=== PATIENT | female | born 1985 | race Caucasian/White ===

== ENCOUNTER 2019-03-29 10:40 | Emergency (ER) | payer OTHER ==
[~2019-03-29] VITALS: Ht 152.4 cm; Wt 64.4 kg
[~2019-03-29 10:40] MED LIST: ONDANSETRON ODT4 MG SL
--- OUTSIDE RECORDS SUMMARY | 2019-03-29 10:42 | XMS ---
PreManage Notification: MARLENI VU Security Manager Rental Events No recent Security Events currently on file CRITERIA MET - Group Notification - [facility] - Has Care Guidelines - [facility] - 2 Visits in 30 Days CARE PROVIDERS JODY CADENA Family Medicine 02/04/2012-Current PHONE: Unknown SURINDER Maria Primary Care 11/24/2011-Current PHONE: Unknown Ruthie Maria MD Primary Care 11/17/2012-Current PHONE: Unknown CORINNA SHEPPARD Primary Care 03/05/2017-Yaniv PAK PHONE: [phone] SHONDA LUCAS Primary Care Current PHONE: [phone] Shlomo CHANEYP Primary Care 08/07/2016-Current PHONE: [phone] [facility] Primary Care 11/11/2016-[facility] NADIA PHONE: [phone] Corinna Sheppard Primary Care [facility] PHONE: [phone] [facility] Primary Care [facility] PCP PHONE: Unknown SRINIVAS QUINTANA Primary Care Current PHONE: Unknown Kristine has no Care Guidelines for this patient. Care History Medical/Surgical 03/09/2019 [facility] - PATIENT DOES NOT HAVE INSURANCE-ADÁN CONTACTED TO SEE IF CONTACT CAN BE MADE WITH PATIENT TO HELP WITH APPLYING FOR MEDICAL BENEFITS. - PATIENT DOES NOT HAVE A PCP. E.D. VISIT COUNT (12 MO.) [address] TOTAL 5 NOTE: Visits indicate total known visits. ED/UCC VISIT TRACKING (12 MO.) 03/29/2019 10:40 [facility] [place] TYPE: Emergency COMPLAINT: - URINE PROBLEM 03/08/2019 20:28 [facility] [place] TYPE: Emergency COMPLAINT: - BACK PAIN NON INJURY, HEADACHE DIAGNOSES: - Low back pain - Opioid dependence with withdrawal - Nicotine dependence, unspecified, uncomplicated - Allergy status to other drugs, medicaments and biological substances status - Allergy status to analgesic agent status 03/06/2019 20:11 [facility] [place] TYPE: Emergency COMPLAINT: - NAUSEA/VOMITING DIAGNOSES: - Allergy status to analgesic agent status - Opioid dependence with withdrawal - Nicotine dependence, unspecified, uncomplicated 02/17/2019 06:04 [facility] [place] TYPE: Emergency DIAGNOSES: 73964. MEDICAL CONCERNS 77442. Delusional disorders 10/03/2018 06:11 [facility] [place] TYPE: Emergency DIAGNOSES: 52033. abscess on right arm 32914. Other psychoactive substance use, unspecified, uncomplicated 50797. Cutaneous abscess, unspecified INPATIENT VISIT TRACKING (12 MO.) No inpatient visits to display in this time frame [email or web address]
[2019-03-29] MEDS ORDERED: METHADONE HCL40 MG PO (11:12)
== END 2019-03-29 14:45 | disposition home or self-care (01) ==
LOC: ED 10:40
DX: R31.9 Hematuria, unspecified (principal); F17.200 Nicotine dependence, unspecified, uncomplicated; Z88.8 Allergy status to other drugs, medicaments and biological substances; Z88.6 Allergy status to analgesic agent; Z79.899 Other long term (current) drug therapy
CPT/HCPCS: 81001; 99283

== ENCOUNTER 2019-04-13 11:01 | Emergency (ER) | payer OTHER ==
[~2019-04-13] VITALS: Ht 152.4 cm; Wt 64.4 kg
[~2019-04-13 11:01] MED LIST changes: +METHADONE HCL40 MG PO
--- OUTSIDE RECORDS SUMMARY | 2019-04-13 11:04 | XMS ---
PreManage Notification: MARLENI VU Security Weaver Dobby Loom Events No recent Security Events currently on file CRITERIA MET - Group Notification - [facility] - Has Care Guidelines - [facility] - 2 Visits in 30 Days CARE PROVIDERS JODY CADENA Family Medicine 02/04/2012-Current PHONE: Unknown JODY CADENA Primary Care 11/24/2011-Current PHONE: Unknown Ruthie Maria MD Primary Care 11/17/2012-Current PHONE: Unknown SHONDA LUCAS Primary Care Current PHONE: [phone] Shlomo RUIZ Primary Care 08/07/2016-Current PHONE: [phone] [facility] Primary Care 11/11/2016-[facility] MICHELLEIZABEL PHONE: [phone] [facility] Primary Care [facility] PCP PHONE: Unknown SRINIVAS QUINTANA Primary Care Current PHONE: Unknown Kristine has no Care Guidelines for this patient. Care History Medical/Surgical 03/30/2019 [facility] CASE MANAGEMENT REFERRAL MADE- PATIENT HAS E[facility]CCO AND NO PCP. 03/09/2019 [facility] - PATIENT DOES NOT HAVE INSURANCE-ADÁN CONTACTED TO SEE IF CONTACT CAN BE MADE WITH PATIENT TO HELP WITH APPLYING FOR MEDICAL BENEFITS. - PATIENT DOES NOT HAVE A PCP. Nae VISIT COUNT (12 MO.) [address] TOTAL 6 NOTE: Visits indicate total known visits. ED/UCC VISIT TRACKING (12 MO.) [facility] COMPLAINT: - PASSED OUT 03/29/2019 10:40 [facility] [place] TYPE: Emergency COMPLAINT: - URINE PROBLEM DIAGNOSES: - Allergy status to other drugs, medicaments and biological substances status - Hematuria, unspecified - Allergy status to analgesic agent status - Nicotine dependence, unspecified, uncomplicated - Other vocational rehabilitation technician (current) drug therapy 03/08/2019 20:28 [facility] [place] TYPE: Emergency [...] - Nicotine dependence, unspecified, uncomplicated 02/17/2019 06:04 [facility] [place] TYPE: Emergency DIAGNOSES: 29244. MEDICAL CONCERNS 35818. Delusional disorders 10/03/2018 06:11 [facility] [place] TYPE: Emergency DIAGNOSES: 08504. abscess on right arm 26969. Other psychoactive substance use, unspecified, uncomplicated 80101. Cutaneous abscess, unspecified INPATIENT VISIT TRACKING (12 MO.) No inpatient visits to display in this time frame [email or web address]
[2019-04-13] MEDS ORDERED: REGLAN10 MG PO (13:31)
[2019-04-13] MEDS ORDERED: ONDANSETRON ODT8 MG PO (13:31)
== END 2019-04-13 13:53 | disposition home or self-care (01) ==
LOC: ED 11:01
DX: G43.909 Migraine, unspecified, not intractable, without status migrainosus (principal); F17.200 Nicotine dependence, unspecified, uncomplicated; Z88.6 Allergy status to analgesic agent; Z88.8 Allergy status to other drugs, medicaments and biological substances; Z79.899 Other long term (current) drug therapy
CPT/HCPCS: 96361; 96374; 96375; 99283-25; 99406; J1100; J1200; J2405; J2550; J7030

== ENCOUNTER → 2019-05-29 | Emergency (ER) | payer OTHER ==
[~2019-05-29] VITALS: Ht 152.4 cm; Wt 64.4 kg
[~2019-05-29] MED LIST changes: +CLINDAMYCIN HC300 MG PO; +ONDANSETRON ODT8 MG PO; +REGLAN10 MG PO; +SUBOXONE 8 MG-1 EAC1 SL; +WELLBUTRIN SR100 MG
--- OUTSIDE RECORDS SUMMARY | 2019-05-29 19:16 | XMS ---
PreManage Notification: MARLENI VU Security Contact Center Analyst Events No recent Security Events currently on file CRITERIA MET - Group Notification - 6 ED Visits in 6 Months - - [facility] Guidelines - PDMP CARE PROVIDERS JODY CADENA Family Medicine 02/04/2012-Current PHONE: Unknown JODY CADENA Primary Care 11/24/2011-Current PHONE: Unknown Ruthie Maria MD Primary Care 11/17/2012-Current PHONE: Unknown CORINNA SHEPPARD Primary Care 03/05/2017-Current [facility] PHONE: [phone] SHONDA LUCAS Primary Care Current PHONE: [phone] Shlomo CHANEYP Primary Care 08/07/2016-Current PHONE: [phone] [facility] Primary Care 11/11/2016-[facility] NADIA PHONE: [phone] Corinna Sheppard Primary Care [facility] PHONE: [phone] [facility] Primary Care [facility] PCP PHONE: Unknown SRINIVAS QUINTANA Primary Care Current PHONE: Unknown Guidelines Source: Radha \F\ [place] IPA Guidelines Date: 04/13/2019 Care Coordination: Please call [facility] case management Aye Sandoval [facility] assistant case manager\T\nbsp; Or Lynsey Mancia RN [phone] ext [phone] or 207\T\nbsp; Care History Medical/Surgical 03/30/2019 [facility] CASE MANAGEMENT REFERRAL MADE- PATIENT HAS EOCCO AND NO PCP. 03/09/2019 [facility] - PATIENT DOES NOT HAVE INSURANCE-ADÁN CONTACTED TO SEE IF CONTACT CAN BE MADE WITH PATIENT TO HELP WITH APPLYING FOR MEDICAL BENEFITS. - PATIENT DOES NOT HAVE A PCP. E.D. VISIT COUNT (12 MO.) [address] TOTAL 7 NOTE: Visits indicate total known visits. ED/UCC VISIT TRACKING (12 MO.) 05/29/2019 19:14 [facility] [place] TYPE: Emergency COMPLAINT: - DENTAL ISSUE 04/13/2019 11:02 [facility] [place] TYPE: Emergency COMPLAINT: - PASSED OUT DIAGNOSES: - Nicotine dependence, unspecified, uncomplicated - Headache - Allergy status to analgesic agent status - Other bed bug exterminator (current) drug therapy - Migraine, unsp, not intractable, without status migrainosus - Allergy status to oth drug/meds/biol subst status 03/29/2019 10:40 [facility] [place] TYPE: Emergency COMPLAINT: - URINE PROBLEM DIAGNOSES: - Allergy status to oth drug/meds/biol subst status - Hematuria, unspecified - Allergy status to analgesic agent status - Nicotine dependence, unspecified, uncomplicated - Other bed bug exterminator (current) drug therapy 03/08/2019 20:28 [facility] [place] TYPE: Emergency COMPLAINT: - BACK PAIN NON INJURY, HEADACHE DIAGNOSES: - Low back pain - Opioid dependence with withdrawal - Nicotine dependence, unspecified, uncomplicated - Allergy status to oth drug/meds/biol subst status - Allergy status to analgesic agent status 03/06/2019 20:11 [facility] [place] TYPE: Emergency COMPLAINT: - NAUSEA/VOMITING DIAGNOSES: - Allergy status to analgesic agent status - Opioid dependence with withdrawal - Nicotine dependence, unspecified, uncomplicated 02/17/2019 06:04 [facility] [place] TYPE: Emergency DIAGNOSES: 65387. MEDICAL CONCERNS 30971. Delusional disorders 10/03/2018 06:11 [facility] [place] TYPE: Emergency DIAGNOSES: 83287. abscess on right arm 01478. Other psychoactive substance use, unspecified, uncomplicated 18326. Cutaneous abscess, unspecified INPATIENT VISIT TRACKING (12 MO.) No inpatient visits to display in this time frame [email or web address]
== END ==
LOC: ED 19:14
DX: K04.7 Periapical abscess without sinus (principal); K02.9 Dental caries, unspecified; F17.200 Nicotine dependence, unspecified, uncomplicated; Z88.8 Allergy status to other drugs, medicaments and biological substances; Z88.6 Allergy status to analgesic agent; Z79.899 Other long term (current) drug therapy
CPT/HCPCS: 99282

== ENCOUNTER 2020-05-21 17:20 | Emergency (ER) | payer OTHER ==
[~2020-05-21] VITALS: Ht 152.4 cm; Wt 68.0 kg
--- OUTSIDE RECORDS SUMMARY | ~2020-05-21 | XMS | Encounter Summary ---
Demographics + + + | Address | [address] | | | [place] [address] | + + + | Home Phone | | + + + | Preferred Language | Unknown | + + + | Marital Status | Unknown | + + + | Adventism Affiliation | Unknown | + + + | Race | Unknown | + + + | Ethnic Group | Not or | + + + Author + + + | Author | [facility] | | | and [place] | + + + | Organization | [facility] | | | and [place] | + + + | Address | Unknown | + + + | Phone | Unavailable | + + + Support +--------+ +---------+ + | Name | Relationship | Address | Phone | +--------+ +---------+ + | One No | ECON | Unknown | Unavailable | +--------+ +---------+ + Care Team Providers + +------+ + | Care Sign Letterer Name | Role | Phone | + +------+ + PCP | Unavailable | + +------+ + Reason for Visit + +--------+ + | Reason | Onset | Comments | | | Date | | + +--------+ + | Coordination Of Care | 04/12/ | | | | 2020 | | + +--------+ + Encounter Details +--------+ + + + + | Date | Type | Department | Care Team | Description | +--------+ + + + + | 04/12/ | Telephone | [facility] | [facility], | Coordination Of Care | | 2020 | | INFECTIOUS DISEASE | MD [address] | | | | | [address] | [address] | | | | | [place], [place] | [place] [address] | | | | | [address] | [phone] | | | | | [phone] | | | +--------+ + + + + Social History + +-------+ +--------+------+ | Tobacco Use | Types | Packs/Day | Years | Date | | | | | Used | | + +-------+ +--------+------+ | Never Assessed | | | | | + +-------+ +--------+------+ + + + | Sex Assigned at | Date Recorded | | | | + + + | Not on file | | + + + documented as of this encounter Miscellaneous Notes Telephone Encounter - Shellie Bolivar MD - 04/12/2020 3:47 PM PDTOrder has been hand-w consueloten and signed on lab requisition slipElectronically signed by Shellie Bolivar MD at 0 04/12/2020 3:48 PM PDTTelephone Encounter - Marcy Young, Breakfast Supervisor - 04/12/2020 3 :03 PM PDTReceived a call from Abigail Stewart, regarding patients last set up labs needed to clear He p C. [email or web address] Called [facility] and they confirmed that the lab was drawn incorrectly. Called patient and requested she go back to the lab and have the lab completed. She states that they have a difficult time getting her labs draw, and w katharineld like to know if she could get an order for her to have her labs drawn through her feet. Marcy Young. CMA 3:0 7 PM PDTdocumented in this encounter Plan of Treatment Not on filedocumented as of this encounter Visit Diagnoses Not on filedocumented in this encounter"
--- OUTSIDE RECORDS SUMMARY | ~2020-05-21 | XMS | Encounter Summary ---
Demographics + + + | Address | [address] | | | [place] [address] | + + + | Home Phone | | + + + | Preferred Language | Unknown | + + + | Marital Status | Unknown | + + + | Religion Affiliation | Unknown | + + + | Race | Unknown | + + + | Ethnic Group | Not or | + + + Author + + + | Author | [facility] | | | and [place] | + + + | Organization | [facility] | | | and [place] | + + + | Address | Unknown | + + + | Phone | Unavailable | + + + Support +--------+ +---------+ + | Name | Relationship | Address | Phone | +--------+ +---------+ + | One No | ECON | Unknown | Unavailable | +--------+ +---------+ + Care Team Providers + +------+ + | Care Chief Service Dispatcher Name | Role | Phone | + +------+ + PCP | Unavailable | + +------+ + Reason for Visit + +--------+ + | Reason | Onset | Comments | | | Date | | + +--------+ + | Coordination Of Care | 08/24/ | | | | 2020 | | + +--------+ + Encounter Details +--------+ + + + + | Date | Type | Department | Care Team | Description | +--------+ + + + + | 08/24/ | Telephone | [facility] | [facility], | Coordination Of Care | | 2020 | | INFECTIOUS DISEASE | MD [address] | | | | | [address] | [address] | | | | | [place], [place] | [place] [address] | | | | | [address] | [phone] | | | | | [phone] | | | +--------+ + + + [...] this encounter Miscellaneous Notes Telephone Encounter - Marcy Young Medical Assistant - 09/30/2019 10:17 AM PSTCalled and touched base with patient to find out if she received her medication. She stated that she h ad not. Gave her [facility] phone number to call to set up shipment. Marcy Young. BEHAVIORAL SCIENCES INSTRUCTOR elephone Encounter - Marcy Young Audio Visual Production Specialist - 09/20/2019 5:06 PM PSTSent Hep C Enrollment form to [facility], as she is resident of [place]. Marcy Young. CMA elephone Encounter - Miroslava Young Audio Visual Production Specialist - 09/20/2019 2:21 PM PSTCalled Betsy, and let her know that once she received medication to call to set up apt to be seen before starting Hep C medication. She verbalized understanding and will call once medication is received. Marcy Young. CMAElectro nically signed by García Lynn at 09/20/2019 2:[address] Marcy Beltrán Audio Visual Production Specialist - 09/20/2019 10:14 AM PSTPatient calling about next s tep to get started with process of getting medication. I let her know I would speak with Dr Ligia Bolivar and call her back. She verbalized understanding. Marcy Young. CMA elephone Encounter - Marcy Diego Audio Visual Production Specialist - 08/24/2019 4:32 PM PSTCalled and let the patient know that labs have been received and just waiting for next step. Will contact her with more informa tion. Marcy Young .CMA elephone Encounter - Marcy Young, Audio Visual Production Specialist - 08/24/2019 4:32 PM PS T----- Message from Renuka Bird sent at 08/24/2019 2:40 PM PST ----- Regarding: labs Pt called she wanted to check if we had received her lab test results she had done last we ek from [facility] [place] she would like a call back if you did get her labs. Thanks Renuka document ed in this encounter Plan of Treatment Not on filedocumented as of this encounter Visit Diagnoses Not on filedocumented in this encounter"
--- OUTSIDE RECORDS SUMMARY | ~2020-05-21 | XMS | Encounter Summary ---
Demographics + + + | Address | [address] | | | [place] [address] | + + + | Home Phone | | + + + | Preferred Language | Unknown | + + + | Marital Status | Unknown | + + + | Alevism Affiliation | Unknown | + + + | Race | Unknown | + + + | Ethnic Group | Not or | + + + Author + + + | Author | [facility] | | | and [place] | + + + | Organization | [facility] | | | [...] Team Providers + +------+ + | Care Dredge Mate Name | Role | Phone | + +------+ + PCP | Unavailable | + +------+ + Reason for Visit + +--------+ + | Reason | Onset | Comments | | | Date | | + +--------+ + | Coordination Of Care | 04/05/ | Hep C | | | 2020 | | + +--------+ + Encounter Details +--------+ + + + + | Date | Type | Department | Care Team | Description | +--------+ + + + + | 04/05/ | Telephone | [facility] | [facility], | Coordination Of Care | | 2020 | | INFECTIOUS DISEASE | MD [address] | (Hep C) | | | | [address] | [address] | | | | | [place], [place] | [place] [address] | | | | | [address] | [phone] | | | | | [phone] | | | +--------+ + + + [...] encounter Miscellaneous Notes Telephone Encounter - Marcy Young, Animal Care Worker - 04/05/2020 2:29 PM PDTReceived a call from business case analyst for patient viral load for hep c. (end of treatment labs) confirming patient no longer has hep c. She gave fax number where she would like this lab faxed. ([phone]. FAX) Received labs from [facility] for Hep C antibody test. Called lab about lab and let her kno w I was looking for a Hep C viral load and a CMP. urinalysis technician states that it was ordered in [facility] system wrong and they would call the patient and get a redraw for the viral load. Marcy Young. CMA Tdocumented in this encounter Plan of Treatment Not on filedocumented as of this encounter Visit Diagnoses Not on filedocumented in this encounter"
--- OUTSIDE RECORDS SUMMARY | ~2020-05-21 | XMS | Clinical Summary ---
Demographics + + + | Address | [address] | | | [place] [address] | + + + | Home Phone | | + + + | Preferred Language | Unknown | + + + | Marital Status | Unknown | + + + | Yarsani Affiliation | Unknown | + + + | Race | Unknown | + + + | Ethnic Group | Not or | + + + Author + + + | Author | [facility] | | | and [place] | + + + | Organization | [facility] | | | [...] Team Providers + +------+ + | Care Powerhouse Helper Name | Role | Phone | + +------+ + PCP | Unavailable | + +------+ + Allergies Not on File Medications + + + +---------+------+------+-------+ | Medication | Sig | Dispensed | Refills | Star | End | Statu | | | | | | t | Date | s | | | | | | Date | | | + + + +---------+------+------+-------+ | buprenorphine | | | 0 | 01/0 | | Activ | | (SUBUTEX) 8 mg SUBL | | | | 7/20 | | e | | | | | | 20 | | | + + + +---------+------+------+-------+ | lamoTRIgine | take 1 tablet by | | 0 | 10/1 | | Activ | | (LAMICTAL) 100 mg | mouth twice a day | | | 6/20 | | e | | tablet | | | | 19 | | | + + + +---------+------+------+-------+ | buPROPion | take 1 tablet by | | 0 | 01/0 | | Activ | | (WELLBUTRIN XL) 150 | mouth every morning | | | 9/20 | | e | | mg 24 hr tablet | | | | 20 | | | + + + +---------+------+------+-------+ | nicotine | | | 0 | 09/2 | | Activ | | polacrilex (COMMIT) | | | | 7/20 | | e | | 2 MG lozenge | | | | 19 | | | + + + +---------+------+------+-------+ | MAVYRET 100-40 MG | | | 0 | 04/1 | | Activ | | per tablet | | | | 10/14 | | e | | | | | | 20 | | | + + + +---------+------+------+-------+ Active Problems No known active problems Encounters +--------+ + + + + | Date | Type | Specialty | Care Team | Description | +--------+ + + + + | 04/28/ | Documentati | Infectious Diseases | Amanda Young, | Other (LABS FROM | | 2019 | on | | District Sales Manager | [facility] DOS | | | | | | 04/26/2020 (HCV RNA, | | | | | | CMP)) | +--------+ + + + + | 04/12/ | Telephone | Infectious Diseases | Osmel | Coordination Of Care | 2019 | | | MD Shellie | | +--------+ + + + + | 04/05/ | Telephone | Infectious Diseases | [place] | Coordination Of Care | | 2019 | | | MD Shellie | (Hep C) | +--------+ + + + + | 03/07/ | Telephone | Infectious Diseases | Nikia Luis | Care Coordination | | 2019 | | | YOCASTA Bell | ([facility] case | | | | | | senior manager creative services) | +--------+ + + + + from Last 3 Months Social History + +-------+ +--------+------+ | Tobacco [...] on file | | + + + Last Filed Vital Signs + + + + + | Vital Sign | Reading | Time Taken | Comments | + + + + + | Blood Pressure | 105/72 | 12/01/2019 3:13 PM | | | | | PDT | | + + + + + | Pulse | 72 | 12/01/2019 3:13 PM | | | | | PDT | | + + + + + | Temperature | 37.2 C (98.9 F) | 12/01/2019 3:13 PM | | | | | PDT | | + + + + + | Respiratory Rate | 16 | 12/01/2019 3:13 PM | | | | | PDT | | + + + + + | Oxygen Saturation | 99% | 12/01/2019 3:13 PM | | | | | PDT | | + + + + + | Inhaled Oxygen | - | - | | | Concentration | | | | + + + + + | Weight | 68.9 kg (152 lb) | 12/01/2019 3:13 PM | | | | | PDT | | + + + + + | Height | - | - | | + + + + + | Body Mass Index | - | - | | + + + + + Plan of Treatment + + + + + | Health Maintenance | Due Date | Last | Comments | | | | Done | | + + + + + | Cervical Cancer | | | | | Screening (Pap) | 4 | | | + + + + + | Vaccine: Influenza | | 05/25/20 | | | (#1) | 0 | 19, | | | | | 06/14/20 | | | | | 15, | | | | | 03/28/20 | | | | | 11, | | | | | Addition | | | | | al | | | | | history | | | | | exists | | + + + + + | Vaccine: | | 07/27/20 | | | Dtap/Tdap/Td (3 - | 5 | 15, | | | Td) | | 08/10/19 | | | | | 11 | | + + + + + | Hepatitis C | Completed | 04/26/20 | | | Screening | | 20, | | | | | 12/01/19 | | | | | 20, | | | | | 11/18/19 | | | | | 20, | | | | | Addition | | | | | al | | | | | history | | | | | exists | | + + + + + Procedures + +--------+ + + + | Procedure Name | Priori | Date/Time | Associated Diagnosis | Comments | | | ty | | | | + +--------+ + + + | COMPREHENSIVE | Routin | 04/26/2020 | | Results for this | | METABOLIC PANEL | e | 12:00 PM | | procedure are in the | | | | PDT | | results section. | + +--------+ + + + | HEPATITIS C | Routin | 04/26/2020 | | Results for this | | RNA,QUANTITATIVE,PCR | e | 12:00 PM | | procedure are in the | | | | PDT | | results section. | + +--------+ + + + from Last 3 Months Results Hepatitis C RNA, quantitative, PCR (04/26/2020 12:00 PM PDT) + + + + + + | Component | Value | Ref Range | Performed | Pathologist | | | | | At | Signature | + + + + + + | HCV RNA JEFRY | NOT DETECTED | | REFERENCE | | | | | | LAB | | | Qualitative | | | [facility] | | + + + + + + | HCV RNA JEFRY | NOT DETECTED | | REFERENCE | | | | | | LAB | | | Qualitative | | | [facility] | | + + + + + + + + | Specimen | + + | Blood | + + + + + + + | Performing | Address | City/State/ZIP Code | Phone Number | | Organization | | | | + + + + + | REFERENCE LAB | [address] | [place] | [phone] | | [facility] | | [address] | | + + + + + Comprehensive Metabolic Panel (04/26/2020 12:00 PM PDT) + +---------+ + + + | Component | Value | Ref Range | Performed | Pathologist | | | | | At | Signature | + +---------+ + + + | Na | 140 | 132 - 143 | REFERENCE | | | | | mmol/L | LAB | | | | | | [facility] | | + +---------+ + + + | K | 4.3 | 3.6 - 5.1 | REFERENCE | | | | | mmol/L | LAB | | | | | | [facility] | | + +---------+ + + + | Cl | 105 | 95 - 112 mmol/L | REFERENCE | | | | | | LAB | | | | | | [facility] | | + +---------+ + + + | CO2 | 27 | 19 - 31 mmol/L | REFERENCE | | | | | | LAB | | | | | | [facility] | | + +---------+ + + + | Anion Gap | 12 | 7 - 21 mmol/L | REFERENCE | | | | | | LAB | | | | | | [facility] | | + +---------+ + + + | Glucose | 104 (A) | 70 - 100 mg/dL | REFERENCE | | | | | | LAB | | | | | | [facility] | | + +---------+ + + + | BUN | 16 | 6 - 23 mg/dL | REFERENCE | | | | | | LAB | | | | | | [facility] | | + +---------+ + + + | Creatinine | 0.67 | 0.60 - 1.35 | REFERENCE | | | | | | LAB | | | | | | [facility] | | + +---------+ + + + | GFR | 100 | 60 | REFERENCE | | | ESTIMATE | | | LAB | | | (REF) | | | [facility] | | + +---------+ + + + | BUN/Creatin | 23.9 | 6.0 - 28.6 | REFERENCE | | | ine Ratio | | | LAB | | | | | | [facility] | | + +---------+ + + + | Calcium | 9.6 | 8.5 - 10.3 | REFERENCE | | | | | | LAB | | | | | | [facility] | | + +---------+ + + + | AST | 13 | 13 - 39 U/L | REFERENCE | | | | | | LAB | | | | | | [facility] | | + +---------+ + + + | ALT | 7 | 7 - 52 U/L | REFERENCE | | | | | | LAB | | | | | | [facility] | | + +---------+ + + + | Alkaline | 65 | 31 - 130 U/L | REFERENCE | | | Phosphatase | | | LAB | | | | | | [facility] | | + +---------+ + + + | Bilirubin | 0.4 | 0.0 1.2 | REFERENCE | | | Total | | | LAB | | | | | | [facility] | | + +---------+ + + + | Total | 6.8 | 6.0 - 8.3 g/dL | REFERENCE | | | Protein | | | LAB | | | | | | [facility] | | + +---------+ + + + | Albumin | 4.5 | 3.5 - 5.0 g/dL | REFERENCE | | | | | | LAB | | | | | | [facility] | | + +---------+ + + + | Globulin | 2.3 | 1.8 - 3.5 | REFERENCE | | | | | | LAB | | | | | | [facility] | | + +---------+ + + + | A/G Ratio | 2.0 | 1.1 - 2.4 | REFERENCE | | | | | | LAB | | | | | | [facility] | | + +---------+ + + + + + | Specimen | + + | Blood | + + + + + + + | Performing | Address | City/State/ZIP Code | Phone Number | | Organization | | | | + + + + + | REFERENCE LAB | [address] | [place] | [phone] | | [facility] | | [address] | | + + + + + from Last 3 Months Insurance + +--------+ +--------+ +---------+--------+ | Payer | Benefi | Subscriber | Effect | Phone | Address | Type | | | t Plan | ID | hali | | | | | | / | | Dates | | | | | | Group | | | | | | + +--------+ +--------+ +---------+--------+ | [employer] | [employer] | [id number] | | [phone] | | Medica | | MEDICAID HMO | HEALTH | | [id number]-Pr | 1 | | id | | | MDCD | | esent | | | | | | HMO [place] | | | | | | + +--------+ +--------+ +---------+--------+ + +--------+ +--------+ + + | Guarantor Name | Accoun | Relation to | Date | Phone | Billing Address | | | t Type | Patient | of | | | | | | | | | | + +--------+ +--------+ + + | Betsy Hammond | Person | Self [birth year] | [address] | | | al/Fam | | 1985 | [phone] | [address] [place] | | | [place] | | | 1 (Home) | [address] | + +--------+ +--------+ + + Advance Directives + + + + + | Type | Date Recorded | Patient | Explanation | | | | Road Driver | | + + + + + | Power of | | | | | Emt B | | | | + + + + + | Advance | | | | | Directive | | | | + + + + +"
--- OUTSIDE RECORDS SUMMARY | ~2020-05-21 | XMS | Encounter Summary ---
Demographics + + + | Address | [address] | | | [place] [address] | + + + | Home Phone | | + + + | Preferred Language | Unknown | + + + | Marital Status | Unknown | + + + | Episcopalian Affiliation | Unknown | + + + | Race | Unknown | + + + | Ethnic Group | Not or | + + + Author + + + | Author | [facility] | | | and [place] | + + + | Organization | [facility] | | | [...] Team Providers + +------+ + | Care Brazing Machine Tender Name | Role | Phone | + +------+ + PCP | Unavailable | + +------+ + Encounter Details +--------+ + + + + | Date | Type | Department | Care Team | Description | +--------+ + + + + | 09/20/ | Orders Only | [facility] | [place], | | | 2020 | | INFECTIOUS DISEASE | MD [address]ie [address] | | | | | [address] | [address] | | | | | [place], [place] | [place] [address] | | | | | [address] | [phone] | | | | | [phone] | | | +--------+ + + + [...] + + documented as of this encounter Plan of Treatment Not on filedocumented as of this encounter Visit Diagnoses Not on filedocumented in this encounter"
--- OUTSIDE RECORDS SUMMARY | ~2020-05-21 | XMS | Encounter Summary ---
Demographics + + + | Address | [address] | | | [place] [address] | + + + | Home Phone | | + + + | Preferred Language | Unknown | + + + | Marital Status | Unknown | + + + | Sabianist Affiliation | Unknown | + + + | Race | Unknown | + + + | Ethnic Group | Not or | + + + Author + + + | Author | [facility] | | | and [place] | + + + | Organization | [facility] | | | [...] Team Providers + +------+ + | Care Delivery Rn Name | Role | Phone | + +------+ + PCP | Unavailable | + +------+ + Reason for Visit + +--------+ + | Reason | Onset | Comments | | | Date | | + +--------+ + | Coordination Of Care | 10/05/ | | | | 2020 | | + +--------+ + Encounter Details +--------+ + + + + | Date | Type | Department | Care Team | Description | +--------+ + + + + | 10/05/ | Telephone | [facility] | [facility], | Coordination Of Care | | 2020 | | INFECTIOUS DISEASE | MD [address] | | | | | [address] | [address] | | | | | [place], [place] | [place] [address] | | | | | [address] | [phone] | | | | | [phone] | | | +--------+ + + + [...] documented as of this encounter Miscellaneous Notes Addendum Note - Shellie Bolivar MD - 10/25/2019 4:56 PM PDT Addended by: JOSE BOLIVAR on: 10/25/2019 04:56 PM Modules accepted: Orders ddendum Note - Marcy Weldon Tail End Rider - 10/25/2019 4:40 PM PDT Addended by: MARCY WELDON on: 04:40 PM Modules accepted: Orders eleph one Encounter - Marcy Weldon Tail End Rider - 10/19/2019 11:51 AM PDTCalled and spoke w ith patient regarding her Hep C medication. She states she will be receiving her meds today . Asked the patient if she had any questions regarding the medication, and she stated the p harmacy went over medication and side effect with her earlier. Requested patient call back once she received the medication to set her up for labs and follow up at 4 weeks. She verba lized understanding and will call once she receives the medication. Marcy Weldon. CMaElectron ically signed by Marcy Weldon Tail End Rider at 10/19/2019 11:52 AM PDTTelephone Encount er - Marcy Weldon Tail End Rider - 10/15/2019 10:53 AM PDTCalled in RX to [facility] under Dr. Lilibeth TRINIDAD, per [place] per Dr. Mcelroy. Marcy Weldon. CMA elephone Encounter - Marcy Weldon M edical Uptwister Tender - 10/08/2019 2:18 PM PDTElla TAX COLLECTION COORDINATOR called [facility], and confirmed that all doct ors in [place] are Registered with them except Dr. Bolivar. Her registration has . Need s renewal. The renewal of registration can take up to 30 days. Marcy Weldon. CMAElectronical ly signed by García Lynn at 10/08/2019 2:20 PM PDTTelephone Encounter - Augusto Ross MD - 10/08/2019 11:19 AM PDTEla said she had a similar issues but DMAP but she called and had it resolved. I am sure it's the same thing. elephone Encounter - Marcy Weldon Medical Assistant - 10/07/2019 4:57 PM PDTI think the other docs at [facility] can write the script. Marcy Michaudectronically signed by García Lynn at 10/07/2019 4:58 PM PDTTelephone Encounter - Lennie Weldon sa, Medical Assistant - 10/07/2019 8:49 AM PDTSpoke with [facility], and the pharmacy s tates that in the meantime, while the issue is being worked out, another provider in clinic can write the prescription for the Hep C medication, so the patient can get started. They w ill accept a RX from another provider. Marcy Weldon. CMA elephone Encounter - Marcy Weldon Medical A ssistant - 10/06/2019 5:02 PM PDTReceived a call from [facility] regarding medications. Pharmacy states she can not except RX due to Dr. Bolivar not being enrolled in DMAP. Which is through [facility] medicaid/medicare. Marcy Weldon. CMA documented in this encounter Plan of Treatment + +------+--------+ + + | Name | Type | Priori | Associated Diagnoses | Order Schedule | | | | ty | | | + +------+--------+ + + | Hepatitis C RNA, | Lab | Routin | Chronic hepatitis | 1 Occurrences | | Quant, NAAT | | e | C without hepatic | starting 10/25/2019 | | | | | coma (HCC) | until 10/24/2020 | + +------+--------+ + + | Comprehensive | Lab | Routin | Chronic hepatitis | 1 Occurrences | | Metabolic Panel | | e | C without hepatic | starting 10/25/2019 | | | | | coma (HCC) | until 10/24/2020 | + +------+--------+ + + documented as of this encounter Visit Diagnoses + + | Diagnosis | + + | Chronic hepatitis C without hepatic coma (HCC) - Primary | + + documented in this encounter"
--- OUTSIDE RECORDS SUMMARY | ~2020-05-21 | XMS | Encounter Summary ---
Demographics + + + | Address | [address] | | | [place] [address] | + + + | Home Phone | | + + + | Preferred Language | Unknown | + + + | Marital Status | Unknown | + + + | Restoration Affiliation | Unknown | + + + | Race | Unknown | + + + | Ethnic Group | Not or | + + + Author + + + | Author | [facility] | | | and [place] | + + + | Organization | [facility] | | | [...] Team Providers + +------+ + | Care Boilermaker Welder Name | Role | Phone | + +------+ + PCP | Unavailable | + +------+ + Encounter Details +--------+ + + + + | Date | Type | Department | Care Team | Description | +--------+ + + + + | 08/16/ | Documentati | [facility] | [place], | | | 2020 | on | INFECTIOUS DISEASE | MD [address]ie [address] | | | | | [address] | [address] | | | | | [place], [place] | [place] [address] | | | | | [address] | [phone] | | | | | [phone] | | | +--------+ + + + [...] Not on filedocumented as of this encounter Procedures + +--------+ + + + | Procedure Name | Priori | Date/Time | Associated Diagnosis | Comments | | | ty | | | | + +--------+ + + + | HEPATITIS B SURFACE | Routin | 08/13/2019 | | Results for this | | AB, QUANT | e | 3:17 PM | | procedure are in the | | | | PST | | results section. | + +--------+ + + + | HEPATITS A AB, TOTAL | Routin | 08/13/2019 | | Results for this | | | e | 3:17 PM | | procedure are in the | | | | PST | | results section. | + +--------+ + + + | HEPATITIS B CORE AB, | Routin | 08/13/2019 | | Results for this | | TOTAL | e | 3:17 PM | | procedure are in the | | | | PST | | results section. | + +--------+ + + + | HIV 1 AND 2 AB, | Routin | 08/13/2019 | | Results for this | | REFLEX | e | 3:17 PM | | procedure are in the | | | | PST | | results section. | + +--------+ + + + | HEPATITIS B SURFACE | Routin | 08/13/2019 | | Results for this | | AG | e | 3:17 PM | | procedure are in the | | | | PST | | results section. | + +--------+ + + + documented in this encounter Results Hepatitis B Core Ab, Total (08/13/2019 3:17 PM PST) + + + + + + | Component | Value | Ref Range | Performed | Pathologist | | | | | At | Signature | + + + + + + | Hepatitis B | Negative | negative | REFERENCE | | | Core Ab, | | | LAB | | | Total | | | [facility] | | | | | | [facility] | | + + + + + + + + | Specimen | + + | Blood | + + + + + | Narrative | Performed At | + + + | Anti-Hbc interpretive notes: This test alone cannot differentiate | REFERENCE LAB | | between past or current hepatitis B virus infection. Chronic | [facility] - | | infection or immune status. | [facility] | + + + + + + + + | Performing | Address | City/State/ZIP Code | Phone Number | | Organization | | | | + + + + + | REFERENCE LAB | [address] | [place] | [phone] | | [facility] | | [address] | | + + + + + Hepatitis B Surface Ag (08/13/2019 3:17 PM PST) + + + + + + | Component | Value | Ref Range | Performed | Pathologist | | | | | At | Signature | + + + + + + | Hepatitis B | Negative | negative | REFERENCE | | | Surface Ag | | | LAB | | | | | | [facility] - | | | Neutralizat | | | [facility] | | | ion | | | | | + + + + + + + + | Specimen | + + | Blood | + + + + + | Narrative | Performed At | + + + | HBsAg Interpretive Notes: Negative: No evidence of Active | REFERENCE LAB | | (Acute or Chronic Hepatitis B Virus infection Positive: Consistent | [facility] - | | with active (acute or Chronic) Hepatitis B virus infection. Patient | [facility] | | is infective for hepatitis B. | | + + + + + + + + | Performing | Address | City/State/ZIP Code | Phone Number | | Organization | | | | + + + + + | REFERENCE LAB | [address] | [place] | [phone] | | [facility] | | [address] | | + + + + + Hepatitis B Surface Ab, Quant (08/13/2019 3:17 PM PST) + + + + + + | Component | Value | Ref Range | Performed | Pathologist | | | | | At | Signature | + + + + + + | Hepatitis B | positive | | REFERENCE | | | Surface | | | LAB | | | Ab, Quant | | | [facility] - | | | | | | [facility] | | + + + + + + + + | Specimen | + + | Blood | + + + + + | Narrative | Performed At | + + + | Anti-Hbs interpretive notes: Negative for ANTI-HBs May indicate lack | REFERENCE LAB | | of immunity to future hepatitis B virus infections. However. This | [facility] - | | test alone cannot rule out early active infection. Order hepatitis | [facility] | | B Panel | | + + + + + + + + | Performing | Address | City/State/ZIP Code | Phone Number | | Organization | | | | + + + + + | REFERENCE LAB | [address] [facility] | [place] | [phone] | | [facility] | | [address] | | + + + + + Hepatitis A AB, Total (08/13/2019 3:17 PM PST) + + + + + + | Component | Value | Ref Range | Performed | Pathologist | | | | | At | Signature | + + + + + + | HEP A TOTAL | Positive | | REFERENCE | | | AB | | | LAB | | | | | | [facility] | | | | | | [facility] | | + + + + + + + + | Specimen | + + | Blood | + + + + + + + | Performing | Address | City/State/ZIP Code | Phone Number | | Organization | | | | + + + + + | REFERENCE LAB | [address] [facility] | [place] | [phone] | | [facility] | | [address] | | + + + + + HIV 1 and 2 Ab, Reflex (08/13/2019 3:17 PM PST) + + + + + + | Component | Value | Ref Range | Performed | Pathologist | | | | | At | Signature | + + + + + + | HIV 1/2 | Non-Reactive | Non-Reactive | REFERENCE | | | Ag/Ab | | | LAB | | | | | | [facility] | | | | | | [facility] | | + + + + + + + + | Specimen | + + | Blood | + + + + + + + | Performing | Address | City/State/ZIP Code | Phone Number | | Organization | | | | + + + + + | REFERENCE LAB | [address] | [place] | [phone] | | [facility] | | [address] | | + + + + + documented in this encounter Visit Diagnoses Not on filedocumented in this encounter"
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
--- OUTSIDE RECORDS SUMMARY | ~2020-05-21 | XMS | Encounter Summary ---
Demographics + + + | Address | [address] | | | [place] [address] | + + + | Home Phone | | + + + | Preferred Language | Unknown | + + + | Marital Status | Unknown | + + + | Shinto Affiliation | Unknown | + + + | Race | Unknown | + + + | Ethnic Group | Not or | + + + Author + + + | Author | [facility] | | | and [place] | + + + | Organization | [facility] | | | and [...] Team Providers + +------+ + | Care Organ Tuner Name | Role | Phone | + +------+ + PCP | Unavailable | + +------+ + Reason for Visit + +--------+ + | Reason | Onset | Comments | | | Date | | + +--------+ + | Coordination Of Care | 08/17/ | | | | 2020 | | + +--------+ + Encounter Details +--------+ + + + + | Date | Type | Department | Care Team | Description | +--------+ + + + + | 08/17/ | Telephone | [facility] | [facility], | Coordination Of Care | | 2020 | | INFECTIOUS DISEASE | MD Shellie [address] | | | | | [address] | [address] | | | | | [place], [place] | [place] [address] | | | | | [address] | [phone] | | | | | [phone] | | | +--------+ + + + [...] Miscellaneous Notes Telephone Encounter - Marcy Young Frame Stylist - 08/17/2019 1:54 PM PSTThe Hep A i s a total, not IGM. Entered incorrectly. I did change it. Fibrosure is being processed. She did not have that one done on 08/13. She went in today to have the lab done. Marcy Young . CMA ele phone Encounter - Marcy Young Medical Assistant - 08/17/2019 1:54 PM PST----- Message fr om Shellie Bolivar MD sent at 08/17/2019 1:13 PM PST ----- Is the Fibrosure in process? Please clarify that the hep A antibody positive is total, not an IgM. Thanks,KP ----- Message ----- From: García Lynn Sent: 08/16/2019 2:33 PM PST To: Shellie Bloivar MD document ed in this encounter Plan of Treatment Not on filedocumented as of this encounter Visit Diagnoses Not on filedocumented in this encounter"
--- OUTSIDE RECORDS SUMMARY | ~2020-05-21 | XMS | Encounter Summary ---
Demographics + + + | Address | [address] | | | [place] [address] | + + + | Home Phone | | + + + | Preferred Language | Unknown | + + + | Marital Status | Unknown | + + + | Yarsanism Affiliation | Unknown | + + + | Race | Unknown | + + + | Ethnic Group | Not or | + + + Author + + + | Author | [facility] | | | and [place] | + + + | Organization | [facility] | | | and [...] Team Providers + +------+ + | Care Senior Compliance Officer Name | Role | Phone | + +------+ + PCP | Unavailable | + +------+ + Reason for Visit +---------+ + | Reason | Comments | +---------+ + | Results | Alpha Fetoprotein total | +---------+ + Encounter Details +--------+ + + + + | Date | Type | Department | Care Team | Description | +--------+ + + + + | 08/17/ | Documentati | [facility] | [place], | Results (Alpha | | 2020 | on | INFECTIOUS DISEASE | MD Shellie [address] | Fetoprotein total) | | | | [address] | [address] | | | | | [place], [place] | [place] [address] | | | | | [address] | [phone] | | | | | [phone] | | | +--------+ + + + [...] + + documented as of this encounter Marcy Bailey, Core Maker Helper - 08/17/2019 8:59 AM PSTAlpha Fetoprotein Total Received and abstracted into Epic and sent to scan. Marcy Young. CMA documented in this encounter Plan of Treatment Not on filedocumented as of this encounter Procedures + +--------+ + + + | Procedure Name | Priori | Date/Time | Associated Diagnosis | Comments | | | ty | | | | + +--------+ + + + | ALPHA FETOPROTEIN, | Routin | 08/13/2019 | | Results for this | | L3 PERCENT | e | 11:20 AM | | procedure are in the | | | | PST | | results section. | + +--------+ + + + documented in this encounter Results Alpha fetoprotein, L3 percent (08/13/2019 11:20 AM PST) + + + + + + | Component | Value | Ref Range | Performed | Pathologist | | | | | At | Signature | + + + + + + | Alpha | 1Comment: l | 0 - 15 ng/m | EXTERNAL | | | Fetoprotein | | | LAB | | | , Total | | | | | + + + + + + | Alpha | <0.5 | 0.0 - 9.9 % | EXTERNAL | | | Fetoprotein | | | LAB | | | , L3 | | | | | | Percent | | | | | + + + + + + + + | Specimen | + + | Blood | + + + + + | Narrative | Performed At | + + + | The Phyllis method is used. Results obtained with different assay | EXTERNAL LAB | | methods or kits cannot be used interchangeably. The AFP-L3 | | | percent assay is intended as a risk assessment for the development of | | | hepatocellular carcinoma in patients with chronic liver diseases. | | | Patients with elevated serum AFP-L3 percent should be more intensely | | | evaluated for evidence of hepatocellular carcinoma since elevated | | | values have been shown to be associated with a seven-fold increase in | | | the risk for developing hepatocellular carcinoma within 231 months. | | + + + + +---------+ + + | Performing | Address | City/State/ZIP Code | Phone Number | | Organization | | | | + +---------+ + + | EXTERNAL LAB | | | | + +---------+ + + documented in this encounter Visit Diagnoses Not on filedocumented in this encounter"
--- OUTSIDE RECORDS SUMMARY | ~2020-05-21 | XMS | Encounter Summary ---
Demographics + + + | Address | [address] | | | [place] [address] | + + + | Home Phone | | + + + | Preferred Language | Unknown | + + + | Marital Status | Unknown | + + + | Yazdanism Affiliation | Unknown | + + + | Race | Unknown | + + + | Ethnic Group | Not or | + + + Author + + + | Author | [facility] | | | and [place] | + + + | Organization | [facility] | | | [...] Team Providers + +------+ + | Care Farm Machinery Mechanic Name | Role | Phone | + +------+ + PCP | Unavailable | + +------+ + Reason for Visit +--------+ + | Reason | Comments | +--------+ + | Other | LABS FROM [facility] 04/26/2020 (HCV RNA, CMP) | +--------+ + Encounter Details +--------+ + + + + | Date | Type | Department | Care Team | Description | +--------+ + + + + | 04/28/ | Documentati | [facility] | Amanda Young, | Other (LABS FROM | | 2019 | on | INFECTIOUS DISEASE | It Infrastructure Manager | [facility] | | | | [address] | | 04/26/2020 (HCV RNA, | | | | [place] | | CMP)) | | | | [address] | | | | | | [phone] | | | +--------+ + + + [...] + + documented as of this encounter Progress Amanda Cabrales, It Infrastructure Manager - 04/28/2020 4:36 PM PDTLab Type: CMP, HCV RNA Lab Collection date: 04/26/2020 Received from:[facility] Abstracted into Zeta Interactive:YES Sent to scan:YES Author: JES REDDYElectrondoug signed by Amanda Young, It Infrastructure Manager at 04/28/2020 4 :41 PM PDTdocumented in this encounter Plan of [...] + + documented in this encounter Results Comprehensive Metabolic Panel (04/26/2020 12:00 PM PDT) [...] [facility] | [place] | [phone] | | [facility] | | [address] | | + + + + + Hepatitis C RNA, quantitative, PCR (04/26/2020 12:00 [...] + | REFERENCE LAB | [address] | [place] | [phone] | | [facility] | | [address] | | + + + + + documented in this encounter Visit Diagnoses Not on filedocumented in this encounter"
--- OUTSIDE RECORDS SUMMARY | ~2020-05-21 | XMS | Encounter Summary ---
Demographics + + + | Address | [address] | | | [place] [address] | + + + | Home Phone | | + + + | Preferred Language | Unknown | + + + | Marital Status | Unknown | + + + | Congregation Affiliation | Unknown | + + + | Race | Unknown | + + + | Ethnic Group | Not or | + + + Author + + + | Author | [facility] | | | and [place] | + + + | Organization | [facility] | | | [...] Team Providers + +------+ + | Care Medical Observer Name | Role | Phone | + +------+ + PCP | Unavailable | + +------+ + Reason for Visit +---------+ + | Reason | Comments | +---------+ + | Results | CMP, HCV RNA | +---------+ + Encounter Details +--------+ + + + + | Date | Type | Department | Care Team | Description | +--------+ + + + + | 11/18/ | Documentati | [facility] | Osmel, | Results (CMP, HCV | | 2020 | on | INFECTIOUS DISEASE | MD Shellie [address] | RNA) | | | | [address] | [address] | | | | | [place], [place] | [place] [address] | | | | | [address] | [phone] | | | | | [phone] | | | +--------+ + + + [...] + documented as of this encounter Progress Notes Antonia Negrete, Assistant Manager Bilingual - 11/19/2019 3:06 PM PDTLab Type: CMP, HCV RNA Lab Collection date: 11/18/2019 Received from:[facility] Abstracted into Epic:YES Sent to scan:YES Author:ANTONIA PERERA CMA P DTdocumented in this encounter Plan of Treatment Not on filedocumented as of this encounter Procedures + +--------+ + + + | Procedure Name | Priori | Date/Time | Associated Diagnosis | Comments | | | ty | | | | + +--------+ + + + | HEPATITIS C RNA, | Routin | 11/18/2019 | | Results for this | | QUANT, NAAT | e | | | procedure are in the | | | | | | results section. | + +--------+ + + + | COMPREHENSIVE | Routin | 11/18/2019 | | Results for this | | METABOLIC PANEL | e | | | procedure are in the | | | | | | results section. | + +--------+ + + + documented in this encounter Results Hepatitis C RNA, Quant, NAAT (11/18/2019) + + + + + + | Component | Value | Ref Range | Performed | Pathologist | | | | | At | Signature | + + + + + + | HCV Viral | NOT QUANTIFIED | NOT DETECTED | EXTERNAL | | | Load | | | LAB | | + + + + + + | HCV-LOG 10 | NOT QUANTIFIED | NOT DETECTED | EXTERNAL | | | | | | LAB | | + + + + + + + + | Specimen | + + | Blood | + + + + + | Narrative | Performed At | + + + | NOT QUANTIFIED--The assay detected the presence of the virus but was | EXTERNAL LAB | | unable to accurately quantify the number of copies. This would | | | indicate a result less than 1.0 log IU/mL (10 IU/mL). | | + + + + +---------+ + + | Performing | Address | City/State/ZIP Code | Phone Number | | Organization | | | | + +---------+ + + | EXTERNAL LAB | | | | + +---------+ + + Comprehensive Metabolic Panel (11/18/2019) + +---------+ + + + | Component | Value | Ref Range | Performed | Pathologist | | | | | At | Signature | + +---------+ + + + | Na | 137 | 132 - 143 | EXTERNAL | | | | | mmol/L | LAB | | + +---------+ + + + | K | 4.5 | 3.6 - 5.1 | EXTERNAL | | | | | mmol/L | LAB | | + +---------+ + + + | Cl | 104 | 95 - 112 mmol/L | EXTERNAL | | | | | | LAB | | + +---------+ + + + | Carbon | 23 | 19 - 31 mmol/L | EXTERNAL | | | dioxide | | | LAB | | + +---------+ + + + | Anion Gap | 15 | 7 - 21 mmol/L | EXTERNAL | | | | | | LAB | | + +---------+ + + + | Glucose | 105 (A) | 70 - 100 mg/dL | EXTERNAL | | | | | | LAB | | + +---------+ + + + | BUN | 13 | 6 - 23 mg/dL | EXTERNAL | | | | | | LAB | | + +---------+ + + + | CREATININE | 0.67 | 0.60 - 1.35 | EXTERNAL | | | (PAML) | | mg/dL | LAB | | + +---------+ + + + | GFR | 100 | <60 ml/min | EXTERNAL | | | ESTIMATE | | | LAB | | | (REF) | | | | | + +---------+ + + + | BUN/Creatin | 19.4 | 6.0 - 28.6 | EXTERNAL | | | ine Ratio | | ratio | LAB | | + +---------+ + + + | Calcium | 9.5 | 8.5 - 10.3 | EXTERNAL | | | | | mg/dL | LAB | | + +---------+ + + + | AST | 17 | 13 - 39 U/L | EXTERNAL | | | | | | LAB | | + +---------+ + + + | ALT | 9 | 7 - 52 U/L | EXTERNAL | | | | | | LAB | | + +---------+ + + + | Alkaline | 108 | 31 - 130 U/L | EXTERNAL | | | Phosphatase | | | LAB | | + +---------+ + + + | Bilirubin | 0.3 | 0.0 - 1.2 mg/dL | EXTERNAL | | | Total | | | LAB | | + +---------+ + + + | Protein, | 7.0 | 6.0 - 8.3 g/dL | EXTERNAL | | | Total | | | LAB | | + +---------+ + + + | Albumin | 4.5 | 3.5 - 5.0 g/dL | EXTERNAL | | | | | | LAB | | + +---------+ + + + | Globulin | 2.5 | 1.8 - 3.5 g/dL | EXTERNAL | | | | | | LAB | | + +---------+ + + + | A/G Ratio | 1.8 | 1.1 - 2.4 ratio | EXTERNAL | | | | | | LAB | | + +---------+ + + + + + | Specimen | + + | Blood | + + + +---------+ + + | Performing | Address | City/State/ZIP Code | Phone Number | | Organization | | | | + +---------+ + + | EXTERNAL LAB | | | | + +---------+ + + documented in this encounter Visit Diagnoses Not on filedocumented in this encounter"
--- OUTSIDE RECORDS SUMMARY | ~2020-05-21 | XMS | Encounter Summary ---
Demographics + + + | Address | [address] | | | [place] [address] | + + + | Home Phone | | + + + | Preferred Language | Unknown | + + + | Marital Status | Unknown | + + + | Gnosticism Affiliation | Unknown | + + + | Race | Unknown | + + + | Ethnic Group | Not or | + + + Author + + + | Author | [facility] | | | and [place] | + + + | Organization | [facility] | | | and [...] Team Providers + +------+ + | Care Hair Salon Manager Name | Role | Phone | + +------+ + PCP | Unavailable | + +------+ + Reason for Visit + +--------+ + | Reason | Onset | Comments | | | Date | | + +--------+ + | Care Coordination | 03/07/ | Rosa Maria [employer] case sealer | | | 2020 | | + +--------+ + Encounter Details +--------+ + + + + | Date | Type | Department | Care Team | Description | +--------+ + + + + | 03/07/ | Telephone | [facility] | Nikia Luis | Care Coordination | | 2020 | | INFECTIOUS DISEASE | Arabella RN | ([facility] | | | | [address] | | hotel front office manager) | | | | [place] | | | | | | [address] | | | | | | [phone] | | | +--------+ + + + [...] this encounter Miscellaneous Notes Telephone Encounter - Amanda Young, Hand Singer - 03/20/2020 10:52 AM PDT03/20/2020 : I called patient to F/U on 3MO appointment as [facility] case sealer called office to f/u and s ee if patient was scheduled for appointment. Patient stated she can have labs drawn next wee k and she will call our office to schedule f/u appointment. I provided her callback #. Bola nt voiced understanding and had no questions or concerns. elephone Encounter - Nikia Luis R N - 03/07/2020 9:22 AM [facility] case sealer called and left voice messa ge on Dr Osmel KLINE phone request call back regarding patient. Attempt to reach endy Francoiscase sealer regarding patient, on confidential voicemail. Rosa M barrios Left message for return call. Endy Francoiser for [employer] calls the office regarding patient. Advised patient has not done end of treatment labs and office visit yet. Priscila requests once this is done to pls fax end of treatment lab results to her. [employer]- Wilmer Gomez Rn Case Cleaner Industrial results Fax Will forward to DR Osmel KLINE for follow up. documented in this encounter Plan of Treatment Not on filedocumented as of this encounter Visit Diagnoses Not on filedocumented in this encounter"
--- OUTSIDE RECORDS SUMMARY | ~2020-05-21 | XMS | Encounter Summary ---
Demographics + + + | Address | [address] | | | [place] [address] | + + + | Home Phone | | + + + | Preferred Language | Unknown | + + + | Marital Status | Unknown | + + + | Latter Day Affiliation | Unknown | + + + | Race | Unknown | + + + | Ethnic Group | Not or | + + + Author + + + | Author | [facility] | | | and [place] | + + + | Organization | [facility] | | | and [...] Team Providers + +------+ + | Care Sales & Service Associate Name | Role | Phone | + +------+ + PCP | Unavailable | + +------+ + Reason for Visit + +--------+ + | Reason | Onset | Comments | | | Date | | + +--------+ + | Coordination Of Care | 10/25/ | Medication effects | | | 2020 | | + +--------+ + Encounter Details +--------+ + + + + | Date | Type | Department | Care Team | Description | +--------+ + + + + | 10/25/ | Telephone | [facility] | [facility], | Coordination Of Care | | 2020 | | INFECTIOUS DISEASE | MD [address]ie [address] | (Medication | | | | [address] | [address] | effects) | | | | [place], [place] | [place] [address] | | | | | [address] | [phone] | | | | | [phone] | | | +--------+ + + + [...] Miscellaneous Notes Telephone Encounter - Marcy Young General Operations Agent - 10/26/2019 2:51 PM PDTPatient not ified. She will contact pcp today. Marcy Young. CMA elephone Encounter - Marcy Young Medical Assnely lozoyat - 10/26/2019 1:07 PM PDTFYI- Called patient showcase trimmer with phone number for nati grimes, that is correct to be reached. She disclosed to showcase trimmer that she is having the usua ll side effects of Fatigue, Waking up with sleep in the eyes and also mentioned itchy eyes, and hot flashes, through out the day. Called and spoke with Betsy and she confirmed she is having some side effects. Reports no fevers. She had just noticed them after starting med ication and mentioned them to director case. Marcy Young. CMA documented in this encounter Plan of Treatment Not on filedocumented as of this encounter Visit Diagnoses Not on filedocumented in this encounter"
--- OUTSIDE RECORDS SUMMARY | ~2020-05-21 | XMS | Encounter Summary ---
Demographics + + + | Address | [address] | | | [place] [address] | + + + | Home Phone | | + + + | Preferred Language | Unknown | + + + | Marital Status | Unknown | + + + | Lutheran Affiliation | Unknown | + + + | Race | Unknown | + + + | Ethnic Group | Not or | + + + Author + + + | Author | [facility] | | | and [place] | + + + | Organization | [facility] | | | [...] Team Providers + +------+ + | Care Induction Furnace Operator Name | Role | Phone | + +------+ + PCP | Unavailable | + +------+ + Reason for Visit + + + | Reason | Comments | + + + | Follow-up | Hep C 5 weeks | + + + Encounter Details +--------+---------+ + + + | Date | Type | Department | Care Team | Description | +--------+---------+ + + + | 11/30/ | Office | [facility] | [place], | Chronic hepatitis C | | 2020 | Visit | INFECTIOUS DISEASE | MD [address]ie [address] | without hepatic coma | | | | [address] | [address] | (HCC) (Primary Dx) | | | | [place], [place] | [place] [address] | | | | | [address] | [phone] | | | | | [phone] | | | +--------+---------+ + + + [...] Instructions Patient Instructions Shellie Bolivar MD - 12/01/2019 3:20 PM PDT1. Complete Mavyret p rescription 2. Do lab work prior to follow up in 3 months documented in this encounter Progress Notes Shellie Bolivar MD - 12/01/2019 3:20 PM PDT Subjective: Patient ID: Betsy Hammond is a 34 y.o. female. HPI CC: Follow up for chronic hepatitis C Past medical history, medications, allergies, social and family histories are recorded in E P[facility], reviewed and updated as necessary. Interim History: Patient is currently on week 5 of HCV Rx with Mavyret. Other than mild f atigue, she states she is doing very well with no other symptoms. She reports 100% adherenc e to HCV Rx. Medications have been reviewed and she denies any other medications, including OTCs. She d enies ETOH intake or use of illicit drugs. Review of Systems All other systems reviewed and are negative, unless specified above Objective: Physical Exam Vital signs have been reviewed General: Pleasant female, well kempt and not in distress. HEENT: Normocephalic. Anicteric sclera. No conjunctival lesions. [...] Ear and umbilical area piercings and tattoo Musculoskeletal: No inflamed-looking joints. Neurologic: Oriented x3. Motor strength intact upper and lower extremities. No gross sens ory deficits Psychiatric: Cooperative for the clinical encounter Lab Results Component Value Date ALT 9 11/18/2019 AST 17 11/18/2019 ALKPHOS 108 11/18/2019 BILITOT 0.3 11/18/2019 Lab Results Component Value Date BUN 13 11/18/2019 NA 137 11/18/2019 K 4.5 11/18/2019 CL 104 11/18/2019 CO2 23 11/18/2019 Component Latest Ref Rng & Units 11/18/2019 12:00 AM HCV Viral Load NOT DETECTED NOT QUANTIFIED Assessment: 1. Chronic hepatitis C without hepatic coma (HCC) Hepatitis C RNA, Quant, NAAT Comprehensive Metabolic Panel Patient has early virologic response to Mavyret with excellent adherence and good tolerance to DAA. She has been encouraged to continue excellent medication adherence and advised to call LISA swift if she experiences any other side effect or takes any new medication. SVR will be evaluated with HCV RNA PCR 12 weeks after completion of HCV Rx. Plan: 1. Complete Mavyret prescription 2. Do lab work prior to follow up in 3 months documented in this encounter Plan of Treatment + +------+--------+ + + | Name | Type | Priori | Associated Diagnoses | Order Schedule | | | | ty | | | + +------+--------+ + + | Hepatitis C RNA, | Lab | Routin | Chronic hepatitis | Expected: | | Quant, NAAT | | e | C without hepatic | 03/02/2020, Expires: | | | | | coma (HCC) | 11/30/2020 | + +------+--------+ + + | Comprehensive | Lab | Routin | Chronic hepatitis | Expected: | | Metabolic Panel | | e | C without hepatic | 03/02/2020, Expires: | | | | | coma (HCC) | 11/30/2020 | + +------+--------+ + + documented as of this encounter Visit Diagnoses + + | Diagnosis | + + | Chronic hepatitis C without hepatic coma (HCC) - Primary | + + documented in this encounter"
--- OUTSIDE RECORDS SUMMARY | 2020-05-21 17:24 | XMS ---
PreManage Notification: MARLENI VU Security Safety Pin Assembling Machine Operator Events No recent Security Events currently on file CRITERIA MET - [facility] - Has Care Guidelines CARE PROVIDERS JODY CADENA Family Medicine 02/04/2012-Current PHONE: [phone] GREG MTZ Dentist: Precinct Commanding Officer 05/31/2019-Current PHONE: [phone] Guidelines Source: Radha \F\ [place] IPA Guidelines Date: 04/13/2019 Care Coordination: Please call [facility] case management Aye MACK rn case mgr\T\nbsp; Or Lynsey Mancia RN [phone] ext [phone] or 207\T\nbsp; Care History Medical/Surgical 05/31/2019 [facility] - MDT REFERRAL MADE- DUE TO PATIENT ED HX- FURTHER CASE MANAGEMENT FOLLOW UP NEEDED. 03/30/2019 [facility] CASE MANAGEMENT REFERRAL MADE- PATIENT HAS EOCCO AND NO PCP. 03/09/2019 [facility] - PATIENT DOES NOT HAVE INSURANCE-ADÁN CONTACTED TO SEE IF CONTACT CAN BE MADE WITH PATIENT TO HELP WITH APPLYING FOR MEDICAL BENEFITS. - PATIENT DOES NOT HAVE A PCP. EJake VISIT COUNT (12 MO.) 2 [facility] TOTAL 2 NOTE: Visits indicate total known visits. ED/UCC VISIT TRACKING (12 MO.) [facility]2020 [facility] COMPLAINT: - SKIN PROBLEM, VOMITING 05/29/2019 19:[address] [facility] [place] TYPE: Emergency COMPLAINT: - DENTAL ISSUE DIAGNOSES: - Allergy status to analgesic agent status - Periapical abscess without sinus - Allergy status to other drugs, medicaments and biological sub - Dental caries, unspecified - Other termite control servicer (current) drug therapy - Other specified disorders of teeth and supporting structures - Nicotine dependence, unspecified, uncomplicated INPATIENT VISIT TRACKING (12 MO.) No inpatient visits to display in this time frame [email or web address]
[2020-05-21] MEDS ORDERED: LAMOTRIGINE100 MG PO (19:30)
[2020-05-21] MEDS ORDERED: BACTRIM DS TAB1 EACH PO (19:31)
== END 2020-05-21 19:39 | disposition home or self-care (01) ==
LOC: ED 17:20
DX: L01.00 Impetigo, unspecified (principal); F17.200 Nicotine dependence, unspecified, uncomplicated; Z88.8 Allergy status to other drugs, medicaments and biological substances; Z88.6 Allergy status to analgesic agent; Z79.899 Other long term (current) drug therapy
CPT/HCPCS: 99282

== ENCOUNTER 2020-08-31 18:36 | Emergency (ER) | payer OTHER ==
[~2020-08-31] VITALS: Ht 157.5 cm; Wt 70.3 kg
[~2020-08-31 18:36] MED LIST changes: +BACTRIM DS TAB1 EACH PO; +LAMOTRIGINE100 MG PO
--- OUTSIDE RECORDS SUMMARY | 2020-08-31 18:38 | XMS ---
PreManage Notification: MARLENI VU Security Hand Roller Engraver Events No recent Security Events currently on file CRITERIA MET - [facility] Care Guidelines - PDMP CARE PROVIDERS [facility]Current PHONE: [phone] GREG MTZ [facility] 05/22/2020-Current PHONE: [phone] GREG MTZ Dentist: Fire Adjuster 05/31/2019-Current PHONE: [phone] Guidelines Source: [place] - [place] IPA Guidelines Date: 04/13/2019 Care Coordination: Please call JANEEN case management Aye MACK case filler\T\nbsp; Or Lynsey Mancia RN [phone] ext [phone] or [phone]\T\nbsp; Care History Medical/Surgical 05/31/2019 [facility] REFERRAL MADE- DUE TO PATIENT ED HX- FURTHER CASE MANAGEMENT FOLLOW UP NEEDED. E.D. [facility] MO[facility] NOTE: Visits indicate total known visits. ED/UCC VISIT TRACKING (12 MO.) [facility]2020 [facility] [place] [facility] Emergency COMPLAINT: - KNEE PAIN 05/21/2020 17:22 [facility] [place] TYPE: Emergency COMPLAINT: - SKIN PROBLEM, VOMITING DIAGNOSES: - Other alf (current) drug therapy - Nicotine dependence, unspecified, uncomplicated - Allergy status to other drugs, medicaments and biological substances - Allergy status to analgesic agent - Impetigo, unspecified INPATIENT VISIT TRACKING (12 MO.) No inpatient visits to display in this time frame [email or web address]
[2020-08-31] MEDS ORDERED: GABAPENTIN300 MG PO (18:57)
[2020-08-31] MEDS ORDERED: MAPAP500 MG PO (20:48)
[2020-08-31] MEDS ORDERED: IBU800 MG PO (20:48)
[2020-08-31] MEDS ORDERED: VOLTAREN100 GM TOP (20:48)
== END 2020-08-31 20:57 | disposition home or self-care (01) ==
LOC: ED 18:36
DX: M25.561 Pain in right knee (principal); M25.562 Pain in left knee; F17.200 Nicotine dependence, unspecified, uncomplicated; Z88.8 Allergy status to other drugs, medicaments and biological substances; Z88.6 Allergy status to analgesic agent; Z79.899 Other long term (current) drug therapy
CPT/HCPCS: 73560; 93971; 99284-25

== ENCOUNTER 2021-08-23 17:37 | Emergency (ER) | payer OTHER ==
[~2021-08-23] VITALS: Ht 157.5 cm; Wt 67.4 kg
[~2021-08-23 17:37] MED LIST changes: +GABAPENTIN300 MG PO; +IBU800 MG PO; +MAPAP500 MG PO; +VOLTAREN100 GM TOP
--- OUTSIDE RECORDS SUMMARY | 2021-08-23 17:40 | XMS ---
PreManage Notification: MARLENI VU Security Financial Sales Manager Events No recent Security Events currently on file CRITERIA MET - PDMP CARE PROVIDERS [facility]Current PHONE: Unknown GREG MTZ [facility] Current PHONE: [phone] Care Guidelines exist for the following facilities: [place] [facility] [place] IPA ( 10/16/2020 ) Care History Medical/Surgical 05/31/2019 [facility] REFERRAL MADE- DUE TO PATIENT ED HX- FURTHER CASE MANAGEMENT FOLLOW UP NEEDED. E.D. VISIT COUNT (12 MO.) 3 [facility] TOTAL 3 NOTE: Visits indicate total known visits. ED/UCC VISIT TRACKING (12 MO.) 08/23/2021 17:37 [facility] [place] TYPE: Emergency COMPLAINT: - ABD PAIN,VOMITING 02/20/2021 15:30 [facility] [place] TYPE: Emergency COMPLAINT: - R WRIST SWELLING/PAIN 08/31/2020 18:[address] [facility] [place] TYPE: Emergency COMPLAINT: - KNEE PAIN/ NON INJ DIAGNOSES: - Pain in right knee - Other mcfp (current) drug therapy - Allergy status to analgesic agent - Pain in left knee - Allergy status to other drugs, medicaments and biological substances - Nicotine dependence, unspecified, uncomplicated INPATIENT VISIT TRACKING (12 MO.) No inpatient visits to display in this time frame [email or web address]
[2021-08-23] MEDS ORDERED: PROBIOTIC1 EAC3 PO (20:42)
[2021-08-23] MEDS ORDERED: MACROBID 100 M100 MG PO (23:34)
[2021-08-23] MEDS ORDERED: PYRIDIUM200 MG PO (23:34)
[2021-08-23] MEDS ORDERED: DICYCLOMINE HCL20 MG PO (23:34)
[2021-08-23] MEDS ORDERED: ONDANSETRON ODT4 MG PO (23:34)
--- NOTE | 2021-08-24 13:34 | EKG ---
[facility] [address] [facility] [place], [place] [address] Signed Sinus bradycardia Otherwise normal ECG No previous ECGs available Confirmed by CHRISOTPH LÓPEZ DO ([id number]) on 08/24/2021 1:34:09 PM Electronically Signed By: CHRISTOPH LÓPEZ DO 08/24/21 1334 PATIENT NAME: MARLENI VU Electrocardiogram DATE OF : 83 PHYSICIAN: CHRISTOPH LÓPEZ DO REPORT #: [id number] REPORT IS CONFIDENTIAL AND NOT TO BE RELEASED WITHOUT AUTHORIZATION
== END 2021-08-24 00:02 | disposition home or self-care (01) ==
LOC: ED 17:37
DX: N39.0 Urinary tract infection, site not specified (principal); R11.2 Nausea with vomiting, unspecified; F17.200 Nicotine dependence, unspecified, uncomplicated; Z88.8 Allergy status to other drugs, medicaments and biological substances; Z88.6 Allergy status to analgesic agent; Z79.899 Other long term (current) drug therapy
CPT/HCPCS: 80053; 81001; 84484; 84703; 85025; 93005; 93010; 96372; 99284-25; A9270; J0500

== ENCOUNTER 2021-09-27 03:46 | Emergency (ER) | payer OTHER ==
[~2021-09-27] VITALS: Ht 157.5 cm; Wt 67.3 kg
[~2021-09-27 03:46] MED LIST changes: +DICYCLOMINE HCL20 MG PO; +MACROBID 100 M100 MG PO; +ONDANSETRON ODT4 MG PO; +PROBIOTIC1 EAC3 PO; +PYRIDIUM200 MG PO
--- OUTSIDE RECORDS SUMMARY | 2021-09-27 03:48 | XMS ---
PreManage Notification: MARLENI VU Security Audio Director Events No recent Security Events currently on file CRITERIA MET - PDMP CARE PROVIDERS [facility]Current PHONE: Unknown GREG MTZ [facility] Current PHONE: [phone] Care Guidelines exist for the following facilities: [place] [facility] [place] IPA ( 10/16/2020 ) Care History Medical/Surgical 05/31/2019 [facility] - [facility] REFERRAL MADE- DUE TO PATIENT ED HX- FURTHER CASE MANAGEMENT FOLLOW UP NEEDED. E.D. VISIT COUNT (12 MO.) 3 [facility] TOTAL 3 NOTE: Visits indicate total known visits. ED/UCC VISIT TRACKING (12 MO.) 09/27/2021 03:46 [facility] [place] TYPE: Emergency COMPLAINT: - HEADACHE 08/23/2021 17:37 [facility] [place] TYPE: Emergency COMPLAINT: - ABD PAIN,VOMITING DIAGNOSES: - Urinary tract infection, site not specified - Lower abdominal pain, unspecified - Nausea with vomiting, unspecified - Allergy status to other drugs, medicaments and biological substances - Allergy status to analgesic agent - Other nursing home (current) drug therapy - Nicotine dependence, unspecified, uncomplicated 02/20/2021 15:30 [facility] [place] TYPE: Emergency COMPLAINT: - R WRIST SWELLING/PAIN INPATIENT VISIT TRACKING (12 MO.) No inpatient visits to display in this time frame [email or web address]
[2021-09-27] MEDS ORDERED: BUPRENORPHINE HC8 MG SL (03:57)
[2021-09-27] MEDS ORDERED: OMEPRAZOLE20 MG PO (03:59)
== END 2021-09-27 04:23 | disposition home or self-care (01) ==
LOC: ED 03:46
DX: G43.909 Migraine, unspecified, not intractable, without status migrainosus (principal); F17.200 Nicotine dependence, unspecified, uncomplicated; Z88.6 Allergy status to analgesic agent; Z88.8 Allergy status to other drugs, medicaments and biological substances; Z79.899 Other long term (current) drug therapy
CPT/HCPCS: 99283

== ENCOUNTER 2023-09-11 13:58 | Emergency (ER) | payer OTHER ==
[~2023-09-11] VITALS: Ht 157.5 cm; Wt 87.6 kg
[~2023-09-11 13:58] MED LIST changes: +BUPRENORPHINE HC8 MG SL; +OMEPRAZOLE20 MG PO
--- OUTSIDE RECORDS SUMMARY | 2023-09-11 14:03 | XMS ---
PreManage Notification: MARLENI VU Security High Tension Tester Events No recent Security Events currently on file CRITERIA MET - PDMP CARE PROVIDERS JODY CADENA [facility] 02/04/2012-Current PHONE: Unknown -, [place]- Dentist: Color Blender [facility] PHONE: [phone] Care Guidelines exist for the following facilities: [place] [facility] [place] IPA ( 04/13/2019 ) Care History Medical/Surgical 05/31/2019 [facility] \[facility] REFERRAL MADE- DUE TO PATIENT ED HX- FURTHER CASE MANAGEMENT FOLLOW UP NEEDED. E.D. VISIT COUNT (12 MO.) 1 [facility]elman[facility]igia [facility]fer TOTAL 1 NOTE: Visits indicate total known visits. ED/UCC VISIT TRACKING (12 MO.) 09/11/2023 14:00 [facility] [place] TYPE: Emergency COMPLAINT: - BACK INJURY INPATIENT VISIT TRACKING (12 MO.) No inpatient visits to display in this time frame [id number]
[2023-09-11] MEDS ORDERED: [UNRECOGNIZED DRUG - OTHER] (14:25)
[2023-09-11 15:10] VITALS: BP 152/113
== END 2023-09-11 15:07 | disposition home or self-care (01) ==
LOC: ED 13:58
DX: S39.92XA Unspecified injury of lower back, initial encounter (principal); X50.0XXA Overexertion from strenuous movement or load, initial encounter; F17.200 Nicotine dependence, unspecified, uncomplicated; Z88.8 Allergy status to other drugs, medicaments and biological substances; Z88.6 Allergy status to analgesic agent; Z79.899 Other long term (current) drug therapy
CPT/HCPCS: 99283